=== PATIENT | male | born 1960 | race Caucasian/White ===

== ENCOUNTER 2017-06-14 13:43 | Emergency (ER) | payer MEDICARE ==
[~2017-06-14] VITALS: Ht 193 cm; Wt 120.0 kg
[~2017-06-14 13:43] MED LIST: ASPI325T PO; ATOR80TA PO; CLOP75TA PO; DICY10CA13 PO; HYDR-3129 PO; ISOS60 PO; METO25 PO; PRIL20TA2 PO; PRIN20TA2 PO
[2017-06-14 13:46] VITALS: BP 168/112; PULSE 102; RESP 20; TEMP 97.5; O2SAT 97
[2017-06-14] MEDS ORDERED: NITR0.4S SL (14:08)
[2017-06-14] MEDS ORDERED: DICY10CA12 PO (14:08)
[2017-06-14] MEDS ORDERED: ONDA4TAB7 SL (14:08)
[2017-06-14] MEDS ORDERED: PRIL20TA2 (14:08)
[2017-06-14] MEDS ORDERED: ASPI1CHW4 CHEW (14:08)
[2017-06-14] MEDS ORDERED: HYDR-3516 PO (14:08)
[2017-06-14] MEDS ORDERED: METO1TAB42 PO (14:08)
[2017-06-14] MEDS ORDERED: ATOR80TA45 PO (14:08)
[2017-06-14] MEDS ORDERED: PLAV75TA29 PO (14:08)
[2017-06-14] MEDS ORDERED: LISI-515 PO (14:08)
[2017-06-14] MEDS ORDERED: ONDANSETRON HCL 4 MG/2 ML VIAL IV PUSH ONE (14:15)
[2017-06-14] MEDS ORDERED: SODIUM CHLOR 0.9% 1000 ML INJ 1,000 ML IV ONE (14:15)
[2017-06-14] MEDS ORDERED: MORPHINE SULFATE 2 MG/ML INJ IV PUSH ONE (14:15)
[2017-06-14 14:36] VITALS: BP 153/108; PULSE 96; RESP 20; O2SAT 97
[2017-06-14 14:36] LABS: AUTOMATED NEUTROPHIL # 11.5 TH/MM3 (1.8-7.7); BASOPHIL # 0.1 TH/MM3 (0-0.2); BASOPHIL % 0.6 % (0.0-2.0); EOSINOPHIL % 0.2 % (0.0-4.0); HEMATOCRIT 51.8 % (39.0-51.0); HEMOGLOBIN 17.6 GM/DL (13.0-17.0); LYMPH % 14.3 % (9.0-44.0); LYMPHOCYTE # 2.1 TH/MM3 (1.0-4.8); MEAN CELL VOLUME 88.1 FL (80.0-100.0); MEAN PLATELET VOLUME 8.8 FL (7.0-11.0); MONO % 6.7 % (0.0-8.0); NEUT % 78.2 % (16.0-70.0); PLATELET COUNT 412 TH/MM3 (150-450); RED BLOOD COUNT 5.88 MIL/MM3 (4.50-5.90); RED CELL DISTRIBUTION WIDTH 15.6 % (11.6-17.2); WHITE BLOOD COUNT 14.8 TH/MM3 (4.0-11.0)
--- NOTE | 2017-06-14 14:59 | RADRPT ---
EXAM DATE/TIME: 06/14/2017 14:46 [facility] COMPARISON: No previous studies available for comparison. INDICATIONS : Chest pain, tightness, and shortness of breath. MEDICAL HISTORY : Hypertension. Myocardial infarction. Chronic obstructive pulmonary disease. Former smoker. A fib. GERD. SURGICAL HISTORY : Appendectomy. Cardiac stents. Left lower leg amputation. ENCOUNTER: Initial ACUITY: 4 - 6 days PAIN SCORE: 7/10 LOCATION: Bilateral chest. FINDINGS: PA and lateral views of the chest demonstrate the lungs to be symmetrically aerated without evidence of mass, infiltrate or effusion. The cardiomediastinal contours are unremarkable. Osseous structure s are intact. CONCLUSION: 1. No acute cardiopulmonary findings. Mj Colon MD on June 14, 2017 at 14:57 Board Certified Radiologist. This report was verified electronically.
[2017-06-14 15:05] LABS: BLOOD UREA NITROGEN 24 MG/DL (7-18); CALCIUM 9.4 MG/DL (8.5-10.1); CHLORIDE 101 MEQ/L (98-107); CREATININE 1.21 MG/DL (0.60-1.30); GLOMERULAR FILTRATION RATE 62 ML/MIN (>89); GLUCOSE,RANDOM 113 MG/DL (74-106); SODIUM (NA) 134 MEQ/L (136-145)
[2017-06-14 15:07] LABS: TOTAL BILIRUBIN ADULT 0.7 MG/DL (0.2-1.0)
[2017-06-14 15:08] LABS: TROPONIN I LESS THAN 0.02 NG/ML (0.02-0.05)
[2017-06-14 15:24] LABS: ALBUMIN 4.3 GM/DL (3.4-5.0); DIRECT BILIRUBIN ADULT 0.1 MG/DL (0.0-0.2); INDIRECT BILIRUBIN 0.6 MG/DL (0.0-0.8)
[2017-06-14] MEDS ORDERED: METOCLOPRAMIDE INJ 10 MG in SODIUM CHLORIDE 0.9% INJ 50 ML IV ONE (16:00)
[2017-06-14] MEDS ORDERED: MORPHINE SULFATE 4 MG/ML INJ IV PUSH ONE (16:00)
[2017-06-14] MEDS ORDERED: IOHEXOL 350 MG/ML 10 ML VIAL (for RAD DIAG) IVCONTRAST ONE (16:51)
--- NOTE | 2017-06-14 17:06 | RADRPT ---
EXAM DATE/TIME: 06/14/2017 16:29 [facility] COMPARISON: CT ABDOMEN & PELVIS W CONTRAST, October 22, 2012, 22:22. INDICATIONS : Upper abdominal pain. IV CONTRAST: 96 cc Omnipaque 350 (iohexol) IV ORAL CONTRAST: No oral contrast ingested. RADIATION DOSE: 12.37 CTDIvol (mGy) MEDICAL HISTORY : Cardiovascular disease. Hypertension. SURGICAL HISTORY : Appendectomy. ENCOUNTER: Initial ACUITY: 4 - 6 days PAIN SCALE: 4/10 LOCATION: Bilateral upper quadrant TECHNIQUE: Volumetric scanning of the abdomen and pelvis was performed. Using automated exposure control and ad justment of the mA and/or kV according to patient size, radiation dose was kept as low as reasonably achievable to obtain optimal diagnostic quality images. DICOM format image data is available electro nically for review and comparison. FINDINGS: The limited portion of the lung base visualized is clear. Imaging through the upper abdomen demonstrates a 3.8 x 3.2 cm right adrenal mass. This measures 35 Ho unsfield units. This is equivocal by postcontrast CT. Primary consideration would be an adenoma. It i s only minimal larger when compared to a previous exam dated 10/22/12. The appearance of the liver, spleen, pancreas and kidneys is within normal limits. The abdominal aorta is normal in caliber. There is no retroperitoneal adenopathy. No free air or free fluid is present. The visualized loops of small and large bowel in the upper abdomen are unremarkabl e. There is no free fluid within the pelvis. No iliac or inguinal adenopathy is seen. Note is made of a 1 cm diverticulum projecting off the left side the bladder. The visualized bony structures demonstrate degenerative changes but are otherwise intact. There are p ostsurgical changes in the left proximal femur. CONCLUSION: 1. 3.8 x 3.1 cm right adrenal nodule minimally larger when compared to previous dated 10/22/12. Please see above. 2. No definite abnormality to explain the patient's upper abdominal pain identified. Mj Colon MD on June 14, 2017 at 16:56 Board Certified Radiologist. This report was verified electronically.
[2017-06-14] MEDS ORDERED: ASPIRIN 81 MG CHEW TAB CHEW ONE (17:30)
[2017-06-14 18:06] VITALS: BP 135/105; PULSE 96; RESP 18; O2SAT 97
[2017-06-14] MEDS ORDERED: REGL10TA5 PO (18:31)
--- NOTE | 2017-06-14 18:31 | PD ---
HPI Chief Complaint: Back/ Neck Pain or Injury Time Seen by Provider: 13:55 Travel History International Travel<30 days: No Contact w/Intl Traveler<30days: No Traveled to known affect area: No History of Present Illness HPI Patient is a 56-year-old male who comes in complaining of abdominal pain with nausea and vomiting. He says this started on Monday. He has frequent episodes of nausea and vomiting and has seen gastroenterology and had an endoscopy done that showed no cause of his symptoms. He says he has pain to his epigastric area and radiates up into his chest. He denies shortness of breath. He was taking Zofran at home without relief of his symptoms. He denies fever chills. He is moving his bowels normally. Severity is mild to moderate. PFSH Past Medical History Hx Anticoagulant Therapy: Yes (PLAVIX) Arthritis: No Asthma: No Autoimmune Disease: No Blood Disorders: No Anxiety: No Depression: No Heart Rhythm Problems: Yes Cancer: Yes (SKIN CANCER/ removed) Cardiac Catheterization: Yes (LAD STENT) Cardiovascular Problems: Yes (2 stents placed 2009 2010,CAD, [place]) High Cholesterol: No Chemotherapy: No Chest Pain: Yes Congestive Heart Failure: No COPD: No Cerebrovascular Accident: No Diabetes: No Diminished Hearing: No Endocrine: No Gastrointestinal Disorders: Yes (gerd) GERD: No Glaucoma: No Genitourinary: No Headaches: No Hepatitis: No Hiatal Hernia: No Hypertension: Yes Immune Disorder: No Implanted Vascular Access Dvce: Yes Kidney Stones: No Medical other: Yes (l bka ) Musculoskeletal: No Neurologic: No Psychiatric: No Reproductive: No Respiratory: Yes (copd from exposure ) Migraines: Yes Myocardial Infarction: Yes (2 mi's mar 2010/ august 2011) Radiation Therapy: No Renal Failure: No Seizures: No Sickle Cell Disease: No Sleep Apnea: No Thyroid Disease: No Ulcer: No Tetanus Vaccination: Unknown Influenza Vaccination: No Past Surgical History Abdominal Surgery: Yes (APPENDECTOMY) AICD: No Appendectomy: Yes Arteriovenous Shunt: No Body Medical Devices: CARDIAC STENTS Cardiac Surgery: No Cholecystectomy: No Ear Surgery: No Endocrine Surgery: No Eye Surgery: No Genitourinary Surgery: No Gynecologic Surgery: Yes Insulin Pump: No Joint Replacement: Yes (SHANNON L LEG TO HIP, PINS/SCEWS IN RIGHT ANKLE) Oral Surgery: No Pacemaker: No Thoracic Surgery: No Other Surgery: Yes Social History Alcohol Use: No Tobacco Use: No Substance Use: No Allergies-Medications (Allergen,Severity, Reaction): Coded Allergies: *MDRO Multi-Drug Resistant Organism (Unverified Allergy, Unknown, 06/14/17) pt states was in l leg previous, no active infection at this time Reported Meds & Prescriptions Reported Meds & Active Scripts Active Reglan (Metoclopramide HCl) 10 Mg Tab 10 Mg PO QID PRN Reported Prilosec (Omeprazole Magnesium) 20 Mg Tab Hydrocodone-Acetaminophen 5-325 mg Tab 1 Tab PO Q4H PRN Nitrostat SL (Nitroglycerin) 0.4 Mg Subl 0.4 Mg SL DIRECTED PRN 1 tablet under the tongue as needed for chest pain. Repeat every 5 minutes for a total of 3 DOSES or call 911 if NO relief. Aspirin 81 Low Dose (Aspirin) 81 Mg Chew 81 Mg CHEW DAILY Lisinopril 20 Mg Tab 20 Mg PO DAILY Metoprolol Succinate ER 24 HR (Metoprolol Succinate) 25 Mg Tab 25 Mg PO DAILY Atorvastatin (Atorvastatin Calcium) 80 Mg Tab 80 Mg PO HS Ondansetron Odt 4 Mg Tab 4 Mg SL Q6HR PRN Dicyclomine (Dicyclomine HCl) 10 Mg Cap 10 Mg PO TID Plavix (Clopidogrel Bisulfate) 75 Mg Tab 75 Mg PO DAILY Review of Systems Except as stated in HPI: all other systems reviewed are Neg General / Constitutional: No: Fever, Chills HENT: No: Headaches, Lightheadedness Respiratory: No: Shortness of Breath Gastrointestinal: Positive: Nausea, Vomiting, Abdominal Pain Musculoskeletal: No: Myalgias, Edema Skin: No Rash, No Change in Pigmentation Neurologic: No: Weakness, Dizziness Physical Exam Narrative GENERAL: Awake and alert, in no acute distress. SKIN: Focused skin assessment warm/dry. No wounds or signs of infection. HEAD: Atraumatic. Normocephalic. EYES: Pupils equal and round. No scleral icterus. Extraocular movements intact. ENT: Mucous membranes pink and moist. NECK: Trachea midline. No JVD. CARDIOVASCULAR: Regular rate and rhythm. No murmur appreciated. RESPIRATORY: No accessory muscle use. Clear to auscultation. Breath sounds equal bilaterally. GASTROINTESTINAL: Abdomen soft, nondistended. Mild tenderness to the epigastric area. No rebound or guarding. MUSCULOSKELETAL: No obvious deformities. No clubbing. No cyanosis. No edema. NEUROLOGICAL: Awake and alert. No obvious cranial nerve deficits. Motor grossly within normal limits. Normal speech. PSYCHIATRIC: Appropriate mood and affect; insight and judgment normal. Data Data Last Documented VS Vital Signs Date Time Temp Pulse Resp B/P (MAP) Pulse Ox O2 Delivery O2 Flow Rate FiO2 06/14/17 18:39 96 18 135/105 (115) 97 06/14/17 18:06 Room Air 06/14/17 13:46 97.5 Orders Orders Electrocardiogram (06/14/17 13:49) Complete Blood Count With Diff (06/14/17 13:49) Basic Metabolic Panel (Bmp) (06/14/17 13:49) Ckmb (Isoenzyme) Profile (06/14/17 13:49) Troponin I (06/14/17 13:49) Chest, Pa & Lat (06/14/17 ) Lipase (06/14/17 14:01) Hepatic Functional Panel (06/14/17 14:01) Sodium Chlor 0.9% 1000 Ml Inj (Ns 1000 M (06/14/17 14:15) Ondansetron Inj (Zofran Inj) (06/14/17 14:15) Morphine Inj (Morphine Inj) (06/14/17 14:15) Ct Abd/Pel W Iv Contrast(Rout) (06/14/17 ) Morphine Inj (Morphine Inj) (06/14/17 16:00) Metoclopramide Inj (Reglan Inj) (06/14/17 16:00) Iohexol 350 Inj (Omnipaque 350 Inj) (06/14/17 16:51) Aspirin Chew (Aspirin Chew) (06/14/17 17:30) Ed Discharge Order (06/14/17 18:31) Labs Laboratory Tests Test 06/14/17 14:23 White Blood Count 14.8 TH/MM3 Red Blood Count 5.88 MIL/MM3 Hemoglobin 17.6 GM/DL Hematocrit 51.8 % Mean Corpuscular Volume 88.1 FL Mean Corpuscular Hemoglobin 30.0 PG Mean Corpuscular Hemoglobin Concent 34.0 % Red Cell Distribution Width 15.6 % Platelet Count 412 TH/MM3 Mean Platelet Volume 8.8 FL Neutrophils (%) (Auto) 78.2 % Lymphocytes (%) (Auto) 14.3 % Monocytes (%) (Auto) 6.7 % Eosinophils (%) (Auto) 0.2 % Basophils (%) (Auto) 0.6 % Neutrophils # (Auto) 11.5 TH/MM3 Lymphocytes # (Auto) 2.1 TH/MM3 Monocytes # (Auto) 1.0 TH/MM3 Eosinophils # (Auto) 0.0 TH/MM3 Basophils # (Auto) 0.1 TH/MM3 CBC Comment DIFF FINAL Differential Comment Blood Urea Nitrogen 24 MG/DL Creatinine 1.21 MG/DL Random Glucose 113 MG/DL Calcium Level 9.4 MG/DL Sodium Level 134 MEQ/L Potassium Level 3.6 MEQ/L Chloride Level 101 MEQ/L Carbon Dioxide Level 21.0 MEQ/L Anion Gap 12 MEQ/L Estimat Glomerular Filtration Rate 62 ML/MIN Total Bilirubin 0.7 MG/DL Direct Bilirubin 0.1 MG/DL Indirect Bilirubin 0.6 MG/DL Aspartate Amino Transf (AST/SGOT) 16 U/L Alanine Aminotransferase (ALT/SGPT) 23 U/L Alkaline Phosphatase 122 U/L Total Creatine Kinase 77 U/L Troponin I LESS THAN 0.02 NG/ML Total Protein 8.0 GM/DL Albumin 4.3 GM/DL Lipase 128 U/L [facility] Medical Decision Making Medical Screen Exam Complete: Yes Emergency Medical Condition: Yes Medical Record Reviewed: Yes Interpretation(s) ECG shows normal sinus rhythm at 90, no ST elevation or depression, left anterior fascicular block Differential Diagnosis Gastritis versus pancreatitis versus ACS Narrative Course Patient is a 56 year old male who comes in complaining of nausea, vomiting, epigastric pain. IV established, labs sent. Labs show a WBC count of 14.8 and evidence of dehydration. Patient given IVF, zofran, reglan. CT abd/pelvis performed shows no acute abnormalities. Last 48 hours Impressions Chest X-Ray 06/14/17 0000 Signed Impressions: Service Date/Time: Wednesday, June 14, 2017 14:46 - CONCLUSION: 1. No acute cardiopulmonary findings. Mj Colon MD Abdomen/Pelvis CT 06/14/17 0000 Signed Impressions: Service Date/Time: Wednesday, June 14, 2017 16:29 - CONCLUSION: 1. 3.8 x 3.1 cm right adrenal nodule minimally larger when compared to previous dated 10/22/12. Please see above. 2. No definite abnormality to explain the patient's upper abdominal pain identified. Mj Colon MD Patient offered admission for continued monitoring/ACS rule out. However, he says these are the same symptoms he has had and he would prefer to go home. Advised to follow up with his doctor. Advised to return to the ED as needed for any worsening symptoms. Diagnosis Primary Impression: Nausea & vomiting Qualified Codes: R11.2 - Nausea with vomiting, unspecified Patient Instructions: Acute Nausea and Vomiting (ED), General Instructions Additional Instructions: Drink plenty of fluids. Take Zofran or Reglan as needed for nausea. Follow up with your doctors. Return to the ED as needed for any worsening symptoms. Scripts Metoclopramide (Reglan) 10 Mg Tab 10 MG PO QID Y for NAUSEA, #12 TAB 0 Refills Prov: Mariel Roberto MD 06/14/17 Disposition: 01 DISCHARGE HOME Condition: Stable Mariel Roberto MD Jun 14, 2017 18:31
[2017-06-14 18:39] VITALS: BP 135/105
--- NOTE | 2017-06-15 14:30 | EKG ---
Date Performed: 06/14/2017 Time Performed: 14:16:46 PTAGE: 56 years EKG: NORMAL Sinus rhythm WITH PREMATURE ATRIAL CONTRACTIONS POSSIBLE LEFT ATRIAL ENLARGEMENT LEFT ANTERIOR FASCICULAR BLOCK P OSSIBLE LEFT VENTRICULAR HYPERTROPHY POSSIBLE ANTEROSEPTAL MYOCARDIAL INFARCTION ABNORMAL ECG Compare d to PREVIOUS TRACING , there has been an increase in the sinus rate and a slight leftward julieth ft in the axis but no other significant serial change. PREVIOUS TRACIN02/02/2015 08.21 DOCTOR: Abbi Judd Interpretating Date/Time 06/15/2017 14:30:13
== END 2017-06-14 18:40 | disposition home or self-care (01) ==
LOC: NEPC 13:43
DX: R11.2 Nausea with vomiting, unspecified (principal); R94.31 Abnormal electrocardiogram [ECG] [EKG]; I10 Essential (primary) hypertension; I25.2 Old myocardial infarction; Z95.5 Presence of coronary angioplasty implant and graft; Z79.01 Long term (current) use of anticoagulants
CPT/HCPCS: 71046; 74177; 80048; 80076; 82550; 83690; 84484; 85025; 93005; 96361; 96365; 96375; 96376; 99285; J2270; J2405; J2765; J7030; Q9967